=== PATIENT | female | born 1935 | race Caucasian/White ===

== ENCOUNTER 2018-02-17 20:22 | Emergency (ER) | payer MEDICARE, BC ==
[~2018-02-17] VITALS: Ht 152.4 cm; Wt 50.0 kg
[~2018-02-17 20:22] MED LIST: ALBU18HF2 INH; GUAI600T45 PO; PANT-47 PO; PROM25TA14 PO; ZOF4T PO
[2018-02-17] MEDS ORDERED: LIDOcaine 1.5% w/epinephrine 1:200,000 5ml ampul IJ ONE (20:40)
[2018-02-17] MEDS ORDERED: TETanus/Pertussis (Acell)/Diphther VAC/PF (Tdap-Adult) 0.5ml syringe IM ONE (20:40)
[2018-02-17 21:10] LABS: BASOPHILS % (AUTO) 0.2 % (0-1); EOSINOPHILS # (AUTO) 0.3 X10'3 (0-0.9); EOSINOPHILS % (AUTO) 1.8 % (0-6); HEMATOCRIT 39.9 % (35.0-45.0); HEMOGLOBIN 13.7 g/dl (12.0-16.0); LYMPHOCYTES # (AUTO) 0.8 X10'3 (1.1-4.8); LYMPHOCYTES % (AUTO) 5.4 % (21-51); MEAN CORPUSCULAR HEMOGLOBIN 32.2 PG (27.0-31.0); MEAN CORPUSCULAR HGB CONC 34.3 % (33.0-36.5); MEAN CORPUSCULAR VOLUME 93.6 FL (78-98); MEAN PLATELET VOLUME 7.5 FL (7.4-10.4); MONOCYTES # (AUTO) 0.7 X10'3 (0-0.9); MONOCYTES % (AUTO) 4.9 % (2-12); NEUTROPHILS # (AUTO) 13.2 X10'3 (1.8-7.7); NEUTROPHILS % (AUTO) 87.7 % (42-75); PLATELET COUNT 355 X10'3 (140-440); RED BLOOD COUNT 4.26 X10'6 (4.20-5.60)
[2018-02-17 21:24] LABS: PARTIAL THROMBOPLASTIN TIME 30 SECONDS (22-32); PROTHROMBIN TIME 10.7 SECONDS (9.0-12.0)
[2018-02-17] MEDS ORDERED: acetaminophen 325mg tablet PO ONE (21:50)
[2018-02-17 21:55] LABS: ALANINE AMINOTRANSFERASE 22 U/L (12-78); ALBUMIN/GLOBULIN RATIO 1.3 (1.1-1.5); ALKALINE PHOSPHATASE 119 IU/L (46-116); ANION GAP 10 (8-16); ASPARTATE AMINO TRANSFERASE 23 U/L (10-37); BILIRUBIN,TOTAL 0.3 MG/DL (0.1-1.0); BLOOD UREA NITROGEN 13 MG/DL (7-18); BUN/CREATININE RATIO 18.1 (6.6-38.0); CALCIUM 9.6 MG/DL (8.5-10.1); CHLORIDE 101 MMOL/L (99-107); CREATININE 0.72 MG/DL (0.40-0.90); GLUCOSE 111 MG/DL (70-104); MAGNESIUM 2.1 MG/DL (1.5-2.4); POTASSIUM 4.3 MMOL/L (3.5-5.1); SODIUM 135 MMOL/L (135-145); TOTAL CARBON DIOXIDE 24.4 MMOL/L (24-32); eGFR 77 ML/MIN
[2018-02-17 22:58] VITALS: BP 135/75
== END 2018-02-17 23:03 | disposition home or self-care (01) ==
LOC: ER 20:23
DX: S42.202A Unspecified fracture of upper end of left humerus, initial encounter for closed fracture (principal); S81.012A Laceration without foreign body, left knee, initial encounter; S00.12XA Contusion of left eyelid and periocular area, initial encounter; I50.9 Heart failure, unspecified; Z88.6 Allergy status to analgesic agent; Z91.018 Allergy to other foods; W01.0XXA Fall on same level from slipping, tripping and stumbling without subsequent striking against object, initial encounter; Y93.89 Activity, other specified; Y92.89 Other specified places as the place of occurrence of the external cause; Y99.8 Other external cause status
CPT/HCPCS: 12002; 36415; 70450; 71045; 73030; 80053; 83735; 84484; 85025; 85610; 85730; 90471; 90715; 93005; 99285; A6449; J3490

== ENCOUNTER 2018-02-20 11:01 | Emergency (ER) | payer MEDICARE, BC ==
[~2018-02-20] VITALS: Ht 152.4 cm; Wt 50.0 kg
[2018-02-20 12:41] VITALS: BP 125/62
== END 2018-02-20 12:46 | disposition home or self-care (01) ==
LOC: ER 11:02
DX: S42.302D Unspecified fracture of shaft of humerus, left arm, subsequent encounter for fracture with routine healing (principal); S81.812D Laceration without foreign body, left lower leg, subsequent encounter; I48.91 Unspecified atrial fibrillation; I50.9 Heart failure, unspecified; G89.29 Other chronic pain; Z90.710 Acquired absence of both cervix and uterus; Z60.2 Problems related to living alone; Z88.5 Allergy status to narcotic agent; Z91.02 Food additives allergy status; Z79.899 Other long term (current) drug therapy; X58.XXXD Exposure to other specified factors, subsequent encounter
CPT/HCPCS: 29105; 99283; A4565